=== PATIENT | male | born 2000 | race Caucasian/White ===

== ENCOUNTER 2025-01-22 18:35 | Emergency (ER) | payer OTHER ==
[2025-01-22 18:42] VITALS: RESP 18; TEMP 98.2; BMI 25.4
[2025-01-22] MEDS ORDERED: LORazepam 0.5 MG TABLET ONE (19:50)
[2025-01-22] MEDS: LORazepam 2 MG TABLET PO ONE (19:53)
[2025-01-22] MEDS ORDERED: MIDAZOLAM HCL 5 MG/1 ML Single Dose Vial ONE (20:42)
[2025-01-22] MEDS: MIDAZOLAM HCL 5 MG/1 ML Single Dose Vial IM ONE (20:56)
[2025-01-22] MEDS ORDERED: DIPHTH,PERTUSS(ACELL),TET 0.5 ML DISP.SYRIN IM ONE (21:44)
[2025-01-22] MEDS: DIPHTH,PERTUSS(ACELL),TET 0.5 ML DISP.SYRIN IM ONE (21:48)
[2025-01-22 22:26] VITALS: BP 154/83; PULSE 80
== END 2025-01-22 22:26 | disposition home or self-care (01) ==
LOC: JER 18:35 → JERFT 18:35 → JER 22:26
PROC: 0HQ1XZZ Repair Face Skin, External Approach (ICD-10-PCS; principal; 2025-01-22)
PROC: 0XQKXZZ Repair Left Hand, External Approach (ICD-10-PCS; 2025-01-22)
PROC: 3E023GC Introduction of Other Therapeutic Substance into Muscle, Percutaneous Approach (ICD-10-PCS; 2025-01-22)
PROC: 3E0234Z Introduction of Serum, Toxoid and Vaccine into Muscle, Percutaneous Approach (ICD-10-PCS; 2025-01-22)
DX: S01.81XA Laceration without foreign body of other part of head, initial encounter (principal); S61.012A Laceration without foreign body of left thumb without damage to nail, initial encounter; S61.213A Laceration without foreign body of left middle finger without damage to nail, initial encounter; R55 Syncope and collapse; Z23 Encounter for immunization; W01.0XXA Fall on same level from slipping, tripping and stumbling without subsequent striking against object, initial encounter
CPT/HCPCS: 90715; 99284-25